=== PATIENT | female | born 2000 | race Two or more races ===

== ENCOUNTER 2023-01-14 04:42 | Inpatient (IN) | payer OTHER ==
[~2023-01-14] VITALS: Ht 165.1 cm; Wt 3.2 kg
[2023-01-14] MEDS ORDERED: PRENATAL TABLE1 EAC4 PO (04:53)
[2023-01-18] MEDS ORDERED: IBUPROFEN800 MG PO (09:30)
== END 2023-01-18 16:08 | disposition home or self-care (01) | DRG 788 ==
LOC: LDR 04:42 → O/R 01-15 10:16 → OB/GYN 01-15 13:48
PROVIDERS: ADMIT Obstetrics & Gynecology; ATTEND Obstetrics & Gynecology
PROC: 4A1HXCZ Monitoring of Products of Conception, Cardiac Rate, External Approach (ICD-10-PCS; 2023-01-14)
PROC: 10D00Z1 Extraction of Products of Conception, Low, Open Approach (ICD-10-PCS; principal; 2023-01-15 10:00)
DX: O62.0 Primary inadequate contractions (principal); Z3A.38 38 weeks gestation of pregnancy; Z37.0 Single live birth; Z20.822 Contact with and (suspected) exposure to COVID-19